=== PATIENT | female | born 1945 | race Two or more races ===

== ENCOUNTER → 2021-10-16 | Outpatient (CLI) | payer MEDICARE, OTHER | END | disposition home or self-care (01) | LOC: Rad HDHVI 15:56 | PROVIDERS: ATTEND Internal Medicine | DX: I51.7 Cardiomegaly (principal); I20.8 Other forms of angina pectoris; I10 Essential (primary) hypertension | CPT/HCPCS: 93306 ==

== ENCOUNTER → 2021-11-26 | Outpatient (CLI) | payer MEDICARE, OTHER ==
[~2021-11-26] VITALS: Ht 172.7 cm; Wt 80.7 kg
== END | disposition home or self-care (01) ==
LOC: Rad HDHVI 08:24
PROVIDERS: ATTEND Internal Medicine
DX: I10 Essential (primary) hypertension (principal); R94.31 Abnormal electrocardiogram [ECG] [EKG]; I20.8 Other forms of angina pectoris; E78.5 Hyperlipidemia, unspecified; I21.19 ST elevation (STEMI) myocardial infarction involving other coronary artery of inferior wall
CPT/HCPCS: 78452; 93017; 96374; A9500

== ENCOUNTER → 2024-02-27 | Outpatient (CLI) | payer MEDICARE, OTHER | END | disposition home or self-care (01) | LOC: Rad HDHVI 15:29 | PROVIDERS: ATTEND Internal Medicine Cardiovascular Disease | DX: I10 Essential (primary) hypertension (principal); R42 Dizziness and giddiness | CPT/HCPCS: 93880 ==

== ENCOUNTER → 2024-04-10 | Outpatient (CLI) | payer MEDICARE, OTHER ==
[~2024-04-10] VITALS: Ht 172.7 cm; Wt 83.9 kg
[~2024-04-10] MED LIST: cloNIDine HCL 0.1 MG TAB ONE
== END | disposition home or self-care (01) ==
LOC: Rad HDHVI 08:49
PROVIDERS: ATTEND Internal Medicine Cardiovascular Disease
DX: R00.2 Palpitations (principal); I10 Essential (primary) hypertension; E78.00 Pure hypercholesterolemia, unspecified; R06.01 Orthopnea; E11.21 Type 2 diabetes mellitus with diabetic nephropathy; R42 Dizziness and giddiness; Z82.49 Family history of ischemic heart disease and other diseases of the circulatory system; Z79.899 Other long term (current) drug therapy
CPT/HCPCS: 78452; 93017; 96374; A9500

== ENCOUNTER 2024-07-16 09:55 | Inpatient (IN) | payer MEDICARE, OTHER ==
[~2024-07-16] VITALS: Ht 172.7 cm; Wt 97.3 kg
[2024-07-16] MEDS: HYDROmorphone HCL 2 MG/ML VL/or syr IV ONE (11:14)
[2024-07-16] MEDS: ONDANSETRON HCL 4 MG/2 ML VIAL IV ONE (11:15)
--- NOTE | 2024-07-16 11:16 | ED.PDOC ---
History of Present Illness HPI Comments 78 y/o F, with a Hx of HTN, presents with spouse for c/o headache, today. Patient endorses on unprovoked onset of headaches, intermittently, since 07/11/24. Patient comments on being seen and evaluated at [facility] in [place], [place] for headaches on 07/13/24, with no relief or improvement, after her head CT was negative and prescribed pain medications. Patient also reports on vomiting 1x, yesterday, evening. She denies having any vision or speech changes, dizziness, nausea, vomiting, or other associated symptoms or modifiers at this time, currently. Upon arrival to ED triage, patient had a blood pressure of 185/66. Chief Complaint: Headache Time Seen by MD: 10:58 Primary Care Provider: SONIDO Reviewed Notes: Nurses Notes, Medications, Allergies Allergies: Coded Allergies: Levofloxacin (Verified Allergy, Unknown, 11/26/21) Quinolones (Verified Allergy, Unknown, 11/26/21) Information Source: Patient Mode of Arrival: Ambulatory Severity: Moderate Timing: Days Duration: Since onset Prehospital treatment: Other (see HPI) Past Medical History PAST MEDICAL HISTORY: HTN Surgical History: Denies all surgeries ASSISTANT GROCERY History: No Pertinent ASSISTANT GROCERY History Family History Family History: Unknown Social History Smoker: Non-Smoker Alcohol: Denies ETOH Use Drugs: Denies Drug Use Lives In: Home Neurological: reports: headache All Other Systems: Reviewed and Negative (negative unless otherwise stated above or in HPI) Physical Exam General Appearance: Moderate Distress HEENT: Normal ENT Inspection, Pharynx Normal, TMs Normal Neck: Full Range of Motion, Non-Tender, Normal, Normal Inspection Respiratory: Chest Non-Tender, Lungs Clear, No Accessory Muscle Use, No Respiratory Distress, Normal Breath Sounds Cardiovascular: No Edema, No JVD, No Murmur, No Gallop, Normal Peripheral Pulses, Regular Rate/Rhythm Breast Exam: Deferred Gastrointestinal: No Organomegaly, Non Tender, No Pulsatile Mass, Normal Bowel Sounds, Soft Genitalia: Deferred Pelvic: Deferred Rectal: Deferred Extremities: No calf tenderness, Normal capillary refill, Normal inspection, Normal range of motion, Non-tender, No pedal edema Musculoskeletal : Apperance: Normal Neurologic: Alert, head esthetician II-XII nml as Tested, No Motor Deficits, Normal Affect, Normal Mood, No Sensory Deficits Cerebellar Function: Normal Reflexes: Normal Skin: Dry, Normal Color, Warm Peripheral Pulses: 3+ Radial (R), 3+ Radial (L) Lymphatic: No Adenopathy Was a procedure done? Was a procedure done?: No Differential Dx Considerations may include: tension headache, migraine, HTN emergency, HTN in appropriate medication dosage X-Ray, Labs, Meds, VS Vital Signs Date Time Temp Pulse Resp B/P (MAP) Pulse Ox O2 Delivery O2 Flow Rate FiO2 07/16/24 11:44 74 15 125/72 07/16/24 11:17 Room Air* 0 21 07/16/24 11:16 98.1 65 17 152/89 (110) 97 98.1 07/16/24 11:14 65 17 152/89 07/16/24 10:02 98.3 60 16 185/66 (105) 96 Lab Test 07/16/24 11:17 Range/Units White Blood Count Pending Red Blood Count Pending Hemoglobin Pending Hematocrit Pending Mean Corpuscular Volume Pending Mean Corpuscular Hemoglobin Pending Mean Corpuscular Hemoglobin Concent Pending Red Cell Distribution Width Pending Platelet Count Pending Mean Platelet Volume Pending Neutrophils (%) (Auto) Pending Lymphocytes (%) (Auto) Pending Monocytes (%) (Auto) Pending Basophils (%) (Auto) Pending Neutrophils # (Auto) Pending Lymphocytes # (Auto) Pending Monocytes # (Auto) Pending Sodium Level Pending Potassium Level Pending Chloride Level Pending Carbon Dioxide Level Pending Anion Gap Pending Blood Urea Nitrogen Pending Creatinine Pending Glomerular Filtration Rate Calc Pending BUN/Creatinine Ratio Pending Serum Glucose Pending Calcium Level Pending Troponin I High Sensitivity Pending Current Medications Medications (Trade) Dose Ordered Sig/Carly Route Start Time Stop Time Status Last Admin Hydromorphone HCl (Dilaudid Injection) 1 mg ONCE ONCE IV 07/16/24 11:00 07/16/24 11:01 DC 07/16/24 11:14 Ondansetron HCl (Zofran) 4 mg ONCE ONCE IV 07/16/24 11:00 07/16/24 11:01 DC 07/16/24 11:15 Patient alert. Complaining of headache. Has been having these headaches for some time. Was seen at [facility]. CT scan of the head done last week did not show any acute process. She was given some pain medication without relief. She continues to have headache even after being seen at [facility]. CT of the head done here does not show any acute process. Was given pain medication. Possibly will need MRI. Explained to the patient. Time of 1ST Reevaluation: 11:28 Reevaluation 1ST: Unchanged Patient Education/Counseling: Diagnosis, Treatment Family Education/Counseling: Diagnosis, Treatment Departure 1 Departure Time of Disposition: 12:07 Impression: Primary Impression: Severe headache Additional Impression: Hypertensive urgency Disposition: ADMITTED INPATIENT Admit to: Med Surg Condition: Guarded Critical Care Note Critical Care Time?: No Stability Stability form required: No Heart Score Heart Score: Heart Score Response (Comments) Value History N/A 0 EKG N/A 0 Age N/A 0 Risk Factors N/A 0 Troponin N/A 0 Total 0 I personally scribed for CRESENCIO DUNCAN MD ([email or web address]) on 07/16/24 at 11:16. Electronically submitted by Amandeep Morton ([email or web address]). CRESENCIO DUNCAN MD Jul 16, 2024 11:16
--- NOTE | 2024-07-16 11:55 | DVH ---
EXAM: CT HEAD WITHOUT CONTRAST HISTORY: headache COMPARISON: None TECHNIQUE: Axial images were obtained and reformatted in coronal and sagittal planes. All CT scans at this medical facility are performed using dose modulation techniques as appropriate t o a performed exam including the following: Automated exposure control was utilized; adjustment of th e MA and/or KV according to patient size; and use of iterative reconstruction technique. CT Dose: CTDI volume is 62 mGy. Dose-length product is 1203 mGy*cm FINDINGS: Supratentorial Region: No evidence for large acute territorial ischemia. No intracranial hemorrhage is noted. Confluent white matter hypoattenuating foci are noted bilaterally, which typically reflect chronic microvascular ischemic changes. Posterior Fossa: No acute abnormality. Brainstem: Unremarkable. Sellar/Suprasellar Region: Unremarkable. Ventricles, Cisterns, Sulci: Age-appropriate. Orbits: Unremarkable. Paranasal Sinuses: Unremarkable. Mastoid Air Cells: Unremarkable. Vasculature: Intracranial arterial calcified plaque formation noted. Bones/Soft Tissues: No acute abnormality. Other: None. IMPRESSION: 1. No acute intracranial process. 2. Moderate chronic microvascular ischemic changes.
[2024-07-16 11:59] LABS: Basophils # (auto) 0 10 ^3/uL (0-0.2); Basophils % (auto) 0.2 % (0.0-2.0); Eosinophils # (auto) 0 10 ^3/uL (0-0.8); Hematocrit 43.5 % (36.0-46.0); Hemoglobin 14.5 g/dL (12.2-16.2); Lymphocytes # (auto) 1.2 10 ^3/uL (0.4-5.4); Lymphocytes % (auto) 9.2 % (10.0-50.0); Mean Corpuscular Hemoglobin 31.5 pg (28.0-32.0); Mean Corpuscular Hgb Conc. 33.3 g/dL (32.0-36.0); Mean Corpuscular Volume 94.7 fL (80.0-100.0); Monocytes # (auto) 0.7 10 ^3/uL (0-1.3); Monocytes % (auto) 5.6 % (0.0-12.0); Platelet Count (auto) 236 10^3/uL (140-450); Red Blood Cells 4.59 10^6/uL (4.0-5.20); Red Cell Distribution Width 13.7 % (11.8-14.3)
[2024-07-16 12:01] LABS: Potassium 3.8 mmol/L (3.5-5.1); Sodium 140 mmol/L (136-145)
[2024-07-16 12:02] LABS: Anion Gap 8 (5-15); Carbon Dioxide 25 mmol/L (20-31)
[2024-07-16 12:08] LABS: Blood Urea Nitrogen 17 mg/dL (9-23)
[2024-07-16 12:09] LABS: Chloride 107 mmol/L (98-107); Glucose 126 mg/dL (74-106)
[2024-07-16] MEDS ORDERED: ONDANSETRON HCL 4 MG/2 ML VIAL IV PRN (13:30)
[2024-07-16] MEDS ORDERED: DOCUSATE SOD 100 MG CAP PO PRN (13:30)
--- NOTE | 2024-07-16 13:41 | DVHHP2 ---
History of Present Illness Reason for Visit: Severe headache History of Present Illness The patient is a 78 years old female with past medical history of hypertension and hyperlipidemia presented to [facility] ED with complaint of headache. Patient reports symptoms progressively get worse with intermittent headache and associated vomiting. Patient reports she has been seen and evaluated at [facility] in [place], [place] for headaches on 07/13/24, with no relief or improvement, after her head CT was negative, she was discharged home with prescribed pain medications. Patient was seen and evaluated in the ED, laboratory data shows WBC 13.0, platelets 236, sodium 140, potassium 3.8, BUN 17, creatinine 1.06, glucose 126, troponin 3, blood pressure 185/66 trending down to 125/72, heart rate 74, temperature 98.1 F, O2 saturation 97% on on room air. Head CT showed no acute intracranial process. Please see medication orders section in the computer. On my assessment, at bedside, patient denied chest pain, no dizziness, no palpitation, no shortness of breath, no nausea, no vomiting, no fever, no chills. Patient was admitted for further evaluation and medical management. Past Medical History HTN, hyperlipidemia Past Surgical History Denies all surgeries Family History Reviewed, noncontributory to the management of this case. Past Social History The patient lives at home, denies smoking, alcohol or illicit drugs abuse. Review of Systems Constitutional: Yes: Weakness; No: Fever, Chills, Sweats, Malaise, Other Eyes: No: Pain, Vision change, Conjunctivae inflammation, Eyelid inflammation, Other, Redness ENT: No: Ear pain, Ear discharge, Nose pain, Nose discharge, Nose congestion, Mouth pain, Mouth swelling, Throat pain, Throat swelling, Other Respiratory: No: Cough, Dry, Shortness of breath, SOB with excertion, Wheezing, Hemoptysis, Pleuritic Pain, Sputum, Wheezing, Other Cardiovascular: No: Chest Pain, Palpitations, Orthopnea, Paroxysmal Noc. Dyspnea, Edema, Lt Headedness, Other Gastrointestinal: Vomiting; No: Nausea, Abdominal Pain, Diarrhea, Constipation, Melena, Hematochezia, Other Genitourinary: No Dysuria, No Frequency, No Incontinence, No Hematuria, No Rete ntion, No Other Musculoskeletal: No: other, neck pain, shoulder pain, arm pain, back pain, hand pain, leg pain, foot pain Skin: No: Rash, Lesions, Jaundice, Bruising, Other Neurological: Other (Headache); No: Weakness, Numbness, Incoordination, Change in speech, Confusion, Seizures Allergies: Coded Allergies: Levofloxacin (Verified Allergy, Unknown, 11/26/21) Quinolones (Verified Allergy, Unknown, 11/26/21) Medications Current Medications Medications Dose Ordered Sig/Carly Route Start Time Stop Time Status Last Admin Dose Admin Atorvastatin Calcium 20 mg HS PO 07/16/24 22:00 Metoprolol Tartrate 25 mg BID PO 07/16/24 22:00 Hydralazine HCl 10 mg Q6HP PRN IV 07/16/24 13:30 Ceftriaxone Sodium 50 ml @ 100 mls/hr DAILY@09 IV 07/17/24 09:00 Sodium Chloride 10 ml Q8HR IV 07/16/24 14:00 Acetaminophen/ Hydrocodone Bitart 1 tab Q4HP PRN PO 07/16/24 13:30 Ondansetron HCl 4 mg Q4HP PRN IV 07/16/24 13:30 Docusate Sodium 100 mg BIDPRN PRN PO 07/16/24 13:30 UNV Acetaminophen 650 mg Q6HP PRN PO 07/16/24 13:30 UNV Morphine Sulfate 2 mg Q4HPRN PRN IV 07/16/24 13:30 UNV Exam Vital Signs Vital Signs Date Time Temp Pulse Resp B/P (MAP) Pulse Ox O2 Delivery O2 Flow Rate FiO2 07/16/24 11:44 74 15 125/72 07/16/24 11:17 Room Air* 0 21 07/16/24 11:16 98.1 97 98.1 General Appearance: Alert, Oriented X3, Cooperative, No acute distress HEENT: Atraumatic, PERRLA, EOMI, Mucous membr. moist/pink Respiratory: Clear to auscultation, Normal air movement Cardiovascular: Regular rate, Normal S1, Normal S2, No murmurs Abdominal: Normal bowel sounds, Soft, No tenderness, No hepatospenomegaly, No masses Extremities: No clubbing, No cyanosis, No edema, Normal pulses, No tenderness/swelling Skin: No rashes, No breakdown, No significant lesion Neuro: Normal speech, Normal tone, Sensation intact, Cranial nerves 3-12 NL, Reflexes 2+, Other (Generalized weakness) Psych/Mental Status: Mental status NL, Mood NL Labs/Xrays Labs Test 07/16/24 11:17 Range/Units White Blood Count 13.0 H 4.4-10.8 10^3/uL Red Blood Count 4.59 4.0-5.20 10^6/uL Hemoglobin 14.5 12.2-16.2 g/dL Hematocrit 43.5 36.0-46.0 % Mean Corpuscular Volume 94.7 80.0-100.0 fL Mean Corpuscular Hemoglobin 31.5 28.0-32.0 pg Mean Corpuscular Hemoglobin Concent 33.3 32.0-36.0 g/dL Red Cell Distribution Width 13.7 11.8-14.3 % Platelet Count 236 140-450 10^3/uL Mean Platelet Volume 8.4 6.9-10.8 fL Neutrophils (%) (Auto) 85.0 H 37.0-80.0 % Lymphocytes (%) (Auto) 9.2 L 10.0-50.0 % Monocytes (%) (Auto) 5.6 0.0-12.0 % Eosinophils (%) (Auto) 0.0 0.0-7.0 % Basophils (%) (Auto) 0.2 0.0-2.0 % Neutrophils # (Auto) 11.0 H 1.6-8.6 10 ^3/uL Lymphocytes # (Auto) 1.2 0.4-5.4 10 ^3/uL Monocytes # (Auto) 0.7 0-1.3 10 ^3/uL Eosinophils # (Auto) 0 0-0.8 10 ^3/uL Basophils # (Auto) 0 0-0.2 10 ^3/uL Nucleated Red Blood Cells 0.0 % Sodium Level 140 136-145 mmol/L Potassium Level 3.8 3.5-5.1 mmol/L Chloride Level 107 98-107 mmol/L Carbon Dioxide Level 25 20-31 mmol/L Anion Gap 8 5-15 Blood Urea Nitrogen 17 9-23 mg/dL Creatinine 1.06 H 0.550-1.02 mg/dL Glomerular Filtration Rate Calc 53 >90 mL/min BUN/Creatinine Ratio 16.0 10.0-20.0 Serum Glucose 126 H 74-106 mg/dL Calcium Level 10.0 8.7-10.4 mg/dL Troponin I High Sensitivity 3 L </=34 ng/L PATIENT: NEIL JULES ACCT: [id number] UNIT: [id number] : 1945 LOC: ER ROOM / BED: / AGE / SEX: 78 / F ADM STATUS: REG ER SERVICE 1057 ORDERING PHYSICIAN: CRESENCIO DUNCAN MD PROCEDURE(s): HWOCT - HEAD WITHOUT CONTRAST REASON: headache ORDER NUMBER(s): [id number], ACCESSION NUMBER(s): [id number] EXAM: CT HEAD WITHOUT CONTRAST HISTORY: headache COMPARISON: None TECHNIQUE: Axial images were obtained and reformatted in coronal and sagittal planes. All CT scans at this medical facility are performed using dose modulation techniques as appropriate to a performed exam including the following: Automated exposure control was utilized; adjustment of the MA and/or KV according to patient size; and use of iterative reconstruction technique. CT Dose: CTDI volume is 62 mGy. Dose-length product is 1203 mGy*cm FINDINGS: Supratentorial Region: No evidence for large acute territorial ischemia. No intracranial hemorrhage is noted. Confluent white matter hypoattenuating foci are noted bilaterally, which typically reflect chronic microvascular ischemic changes. Posterior Fossa: No acute abnormality. Brainstem: Unremarkable. Sellar/Suprasellar Region: Unremarkable. Ventricles, Cisterns, Sulci: Age-appropriate. Orbits: Unremarkable. Paranasal Sinuses: Unremarkable. Mastoid Air Cells: Unremarkable. Vasculature: Intracranial arterial calcified plaque formation noted. Bones/Soft Tissues: No acute abnormality. Other: None. IMPRESSION: 1. No acute intracranial process. 2. Moderate chronic microvascular ischemic changes. Assessment/Plan Assessment/Plan Severe headache Hypertensive urgency Generalized weakness Leukocytosis, unspecified Plan 1. Admit to telemetry unit 2. Breathing treatment 3. Pain control management 4. IV antibiotic management 5. Management of fluids and electrolytes 6. Consultation for Neurology 7. Diagnostic test head CT 8. DVT prophylaxis-on SCDs 9. Repeat labs CBC, CMP in a.m. 10. Home medication reviewed and reconciled 11. Continue with current medical management 12. Treatment plan discussed with patient/ and RN. Patient/ verbalized understanding. Plan discussed with: Patient, Spouse ( at bedside), Other (RN) My Orders Orders - DARIO HOLBROOK DNP Procedure Category Date Status Time Atorvastatin (Lipitor) PHA 07/16/24 In Process 22:00 Metoprolol Tartrate PHA 07/16/24 In Process Tablet (Lopressor Ta 22:00 Hydralazine Injection PHA 07/16/24 In Process (Apresoline Inject 13:30 Ceftriaxone 1gm/50ml PHA 07/17/24 In Process D5w (Rocephin) 09:00 Ceftriaxone 1gm/50ml PHA 07/16/24 In Process D5w (Rocephin) 13:30 Blood Culture PAULINE 07/16/24 Logged 13:17 Allergies MICA 07/16/24 In Process 13:17 Code Status CODE 07/16/24 Transmitted 13:17 Sodium Chloride Lock PHA 07/16/24 In Process (Saline Lock Ns) 14:00 Oxygen Per Hour RT 07/16/24 Transmitted 13:17 Hydrocodone-Acet PHA 07/16/24 In Process 5/325mg Tab ([place] 13:30 Ondansetron Hcl PHA 07/16/24 In Process (Zofran) 13:30 Docusate Sodium PHA 07/16/24 In Process Capsule (Colace 13:30 Fall Risk Precautions MICA 07/16/[address] 13:17 Complete Blood Count LAB 07/17/24 Verified 04:00 Comprehensive LAB 07/17/24 Verified Metabolic Panel 04:00 Cardiac DIET 07/16/24 Transmitted Diet-2gna,Lofat,Lochol Lunch Condition: Serious MICA 07/16/24 In Process 13:17 Acetaminophen Tablet PHA 07/16/24 In Process (Tylenol Tablet) 13:30 Morphine Sulfate PHA 07/16/24 In Process Injection 13:30 Sequential MICA 07/16/24 In Process Compression Device Problem List: (1) Severe headache (2) Hypertensive urgency (3) Generalized weakness (4) Leukocytosis, unspecified Date of Service: Jul 16, 2024 Billing Provider: DARIO HOLBROOK DNP Common Visit Codes: 38138-[id number] INP/OBS CARE (HIGH) DARIO HOLBROOK DNP Jul 16, 2024 13:41
[2024-07-16] MEDS ORDERED: MORPHINE SULFATE INJ 2 MG/ml SYRG IV PRN (13:45)
[2024-07-16] MEDS ORDERED: NITROGLYCERIN 0.4 MG SL TAB SL PRN (13:45)
[2024-07-16] MEDS: cefTRIAXone 1GM/50ML D5W 50 ML IV ONE (13:46)
[2024-07-16] MEDS: SODIUM CHLOR 0.9% PF (SALINE LOCK) 10ML VIAL/SYR IV SCH (16:14)
[2024-07-16 17:17] VITALS: BP 137/65; PULSE 63; RESP 20; TEMP 98.2; O2SAT 92
[2024-07-16] MEDS: HYDROcodone-ACET 5/325MG TAB PO PRN (19:47)
[2024-07-16] MEDS: MORPHINE SULFATE INJ 2 MG/ml SYRG IV PRN (20:51)
[2024-07-16] MEDS: ATORVASTATIN 20 MG TAB PO SCH (21:11)
[2024-07-16] MEDS: METOPROLOL TARTRATE 25 MG TAB PO SCH (21:16)
[2024-07-16] MEDS ORDERED: ATOR20TA PO (21:25)
[2024-07-16] MEDS ORDERED: LOSA-535 PO (21:25)
[2024-07-16] MEDS ORDERED: METO25TA93 PO (21:25)
[2024-07-16 21:26] VITALS: PULSE 74
[2024-07-16 22:15] VITALS: PULSE 64; RESP 18; TEMP 98.3; O2SAT 91
[2024-07-16 22:35] VITALS: BP 135/60; PULSE 64; RESP 20; TEMP 98.6; O2SAT 91
[2024-07-16] MEDS: ACETAMINOPHEN 325 MG TAB PO PRN (23:56)
[2024-07-17] VITALS (7 sets, daily range): BP systolic 108–176; BP diastolic 37–91; PULSE 55–73; RESP 16–19; TEMP 97.8–98.8; O2SAT 94–97
[2024-07-17] MEDS ORDERED: BACL10TA PO (01:31)
[2024-07-17] MEDS ORDERED: BUPR200T2 PO (01:31)
[2024-07-17] MEDS ORDERED: HYDR-4798 PO (01:31)
[2024-07-17] MEDS ORDERED: ATOR20TA50 PO (01:31)
[2024-07-17 06:57] LABS: Basophils # (auto) 0 10 ^3/uL (0-0.2); Basophils % (auto) 0.3 % (0.0-2.0); Eosinophils # (auto) 0.1 10 ^3/uL (0-0.8); Hematocrit 37.3 % (36.0-46.0); Hemoglobin 12.5 g/dL (12.2-16.2); Lymphocytes % (auto) 21.2 % (10.0-50.0); Mean Corpuscular Hemoglobin 31.6 pg (28.0-32.0); Mean Corpuscular Hgb Conc. 33.4 g/dL (32.0-36.0); Mean Corpuscular Volume 94.6 fL (80.0-100.0); Monocytes # (auto) 1.1 10 ^3/uL (0-1.3); Monocytes % (auto) 11.3 % (0.0-12.0); Neutrophils # (auto) 6.3 10 ^3/uL (1.6-8.6); Neutrophils % (auto) 66.2 % (37.0-80.0); Platelet Count (auto) 206 10^3/uL (140-450); Red Blood Cells 3.94 10^6/uL (4.0-5.20); Red Cell Distribution Width 13.9 % (11.8-14.3); White Blood Cell 9.5 10^3/uL (4.4-10.8)
[2024-07-17 07:12] LABS: Alanine Aminotransferase 15 U/L (7-40); Albumin 3.6 g/dL (3.2-4.8); Alkaline Phosphatase 110 U/L (46-116); Anion Gap 7 (5-15); Aspartate Aminotransferase 14 U/L (13-40); BUN/Creatinine Ratio 17.7 (10.0-20.0); Blood Urea Nitrogen 20 mg/dL (9-23); Calcium 9.2 mg/dL (8.7-10.4); Carbon Dioxide 27 mmol/L (20-31); Chloride 106 mmol/L (98-107); Potassium 3.7 mmol/L (3.5-5.1); Sodium 140 mmol/L (136-145)
[2024-07-17 07:13] LABS: Bilirubin, Total 0.4 mg/dL (0.2-1.0)
[2024-07-17 07:15] LABS: Glucose 125 mg/dL (74-106); Total Protein 5.1 g/dL (5.7-8.2)
[2024-07-17] MEDS: cefTRIAXone 1GM/50ML D5W 50 ML IV SCH (09:26)
--- NOTE | 2024-07-17 14:38 | DVHPN2 ---
Progress Note Date Seen: Jul 17, 2024 Medical Necessity Reason Pt with a Central, PICC or Fol: No Subjective Patient reports: No new complaints Review of Systems: HEENT:Normal, CVS:Normal, RESPIRATORY:Normal, GI:Normal, :Normal, MSK:Normal, NEURO:Normal Objective vital signs Vital Sign Date Time Temp Pulse Resp B/P (MAP) Pulse Ox O2 Delivery O2 Flow Rate FiO2 07/17/24 13:00 98.1 60 18 142/68 (92) 95 98.1 07/17/24 08:00 Room Air* 0 21 Total Intake and Output 07/16/24 07/16/24 07/17/24 15:00 23:00 07:00 Intake Total 50 ml 520 ml Output Total 600 ml Balance 50 ml -80 ml medications Current Medications Medications Dose Ordered Sig/Carly Route Start Time Stop Time Status Last Admin Dose Admin Atorvastatin Calcium 20 mg HS PO 07/16/24 22:00 07/16/24 21:11 20 MG Metoprolol Tartrate 25 mg BID PO 07/16/24 22:00 07/17/24 09:05 25 MG Hydralazine HCl 10 mg Q6HP PRN IV 07/16/24 13:30 Ceftriaxone Sodium 50 ml @ 100 mls/hr DAILY@09 IV 07/17/24 09:00 07/17/24 09:26 100 MLS/HR Sodium Chloride 10 ml Q8HR IV 07/16/24 14:00 07/17/24 06:09 10 ML Acetaminophen/ Hydrocodone Bitart 1 tab Q4HP PRN PO 07/16/24 13:30 07/16/24 19:47 1 TAB Ondansetron HCl 4 mg Q4HP PRN IV 07/16/24 13:30 Docusate Sodium 100 mg BIDPRN PRN PO 07/16/24 13:30 Acetaminophen 650 mg Q6HP PRN PO 07/16/24 13:30 07/16/24 23:56 650 MG Morphine Sulfate 2 mg Q4HPRN PRN IV 07/16/24 13:30 07/17/24 08:43 2 MG Nitroglycerin 0.4 mg Q5MINP PRN SL 07/16/24 13:45 Morphine Sulfate 2 mg Q30M PRN IV 07/16/24 13:45 Examination: GENERAL:Normal, HEENT:Normal, NECK:Normal, LUNGS:Normal, CVS:Normal, ABDOMEN:Normal, MSK:Normal, SKIN:Normal, NEURO:Normal, :Normal laboratory and microbiology Laboratory Tests 07/17/24 05:08 Test 07/17/24 05:08 Range/Units Serum Glucose 125 H 74-106 mg/dL Problem List/Assessment/Plan Problem List/Assessment/Plan #1 severe right headache: mri brain, esr, crp #2 htn #3 obesity #4 hyperlipidemia advance care planning- full code- time spent 19min Plan discussed with: Patient Date of Service: Jul 17, 2024 Billing Provider: GEORGI FIELDS MD Common Visit Codes: [id number] INP/OBS CARE(HIGH) Secondary Visit Codes: [id number] CARE PLAN 30 MINUTES GEORGI FIELDS MD Jul 17, 2024 14:38
[2024-07-17] MEDS: ACETAMINOPHEN/CODEINE#3 (300/30mg) TAB PO PRN (15:06)
--- NOTE | 2024-07-17 15:26 | DVH ---
Carotid Duplex Clinical History: headaches Comparison: None Technique: Duplex doppler evaluation of the extracranial carotid and vertebral arteries including color doppler and spectral/pulsed waveform analysis was performed. Findings: No elevated peak flow velocities. Antegrade flow in both vertebral arteries. No abnormal narrowing scene of the vessels on real time ultrasound Impression: 1. No hemodynamically significant stenosis noted in the right carotid system. 2. No hemodynamically significant stenosis noted in the left carotid system. Reference: Radiology 2003; 229:340-346 Normal ICA PSV is <125 cm/sec and no plaque or intimal thickening is visible sonographically Additional criteria include ICA/CCA PSV ratio <2.0 and ICA EDV <40 cm/sec <50% ICA stenosis ICA PSV is <125 cm/sec and plaque or intimal thickening is visible sonographically Additional criteria include ICA/CCA PSV ratio <2.0 and ICA EDV <40 cm/sec 50-69% ICA stenosis ICA PSV is 125-230 cm/sec and plaque is visible sonographically Additional criteria include ICA/CCA PSV ratio of 2.0-4.0 and ICA EDV of 40-100 cm/sec 70% ICA stenosis but less than near occlusion ICA PSV is >230 cm/sec and visible plaque and luminal narrowing are seen at erazo-scale and color dopp ler ultrasound (the higher the doppler parameters lie above the threshold of 230 cm/sec, the greater the likelihood of severe disease) Additional criteria include ICA/CCA PSV ratio >4 and ICA EDV >100 cm/sec
[2024-07-17 15:46] LABS: Erythrocyte Sedimentation Rate 2 mm/hr (0-20)
[2024-07-17 16:57] LABS: Urine Bacteria FEW /hpf (None Seen); Urine Blood Negative /uL (Negative); Urine Clarity Clear (Clear); Urine Color Light-Yellow (Yellow); Urine Protein, UAD Negative (Negative); Urine Specific Gravity 1.009 (1.001-1.035); Urine Squamous Epithelial Cell FEW /hpf (<5); Urine Urobilinogen Normal (Negative); Urine WBC 1 /hpf (0 - 5)
[2024-07-17] MEDS: hydrALAZINE HCL 20 MG/ML VL IV PRN (17:43)
[2024-07-17] MEDS: buPROPion HCL 100 MG TAB PO SCH (19:25)
[2024-07-18] VITALS (7 sets, daily range): BP systolic 142–169; BP diastolic 50–82; PULSE 55–58; RESP 17–18; TEMP 97.7–98.6; O2SAT 94–96
[2024-07-18] MEDS: LOSARTAN POTASSIUM 50 MG TAB PO SCH (09:35)
[2024-07-18] MEDS: LORazepam 2MG/ML-1ML VIAL IV ONE (10:37)
--- NOTE | 2024-07-18 11:38 | DVH ---
EXAMINATION: MRI BRAIN HEAD WO CONTRAST INDICATION: SEVERE HEADACHES COMPARISON: None TECHNIQUE: Multiplanar, multisequence magnetic resonance imaging of the brain was performed without the use of i ntravenous contrast. FINDINGS: No evidence of acute or remote infarct. No intracranial hemorrhage. No mass effect. There is periventricular/deep white matter T2/FLAIR hyperintensity is nonspecific, but most commonly associated with chronic microvascular disease. The ventricles and sulci are normal in size for age. Clear basal cisterns. Flow voids in the major intracranial vessels are maintained. No abnormality of the orbits. Paranasal sinuses and mastoid air cells are clear. No abnormality of the visualized osseous structures and extracranial soft tissues. IMPRESSION: No acute infarct, intracranial hemorrhage, mass effect, or hydrocephalus.
--- NOTE | 2024-07-18 12:34 | DVHDS2 ---
Discharge Summary Date of Admission Jul 16, 2024 at 13:37 Date of Discharge: Jul 18, 2024 Labs/Diagnostic Data: Laboratory Results Test 07/17/24 16:44 07/17/24 05:08 07/16/24 11:17 Urine Color Light-yellow (Yellow) Urine Clarity Clear (Clear) Urine pH 6.0 (5.0-9.0) Urine Specific [place] 1.009 (1.001-1.035) Urine Protein Negative (Negative) Urine Ketones Negative (Negative) Urine Blood Negative /uL (Negative) Urine Nitrite Negative (Negative) Urine Bilirubin Negative (Negative) Urine Urobilinogen Normal mg/dL (Negative) Urine Leukocyte Esterase Negative /uL (Negative) Urine RBC 1 /hpf (0 - 4) Urine WBC 1 /hpf (0 - 5) Urine Squamous Epithelial Cells Few /hpf (<5) Urine Bacteria Few /hpf (None Seen) Urine Glucose Normal mg/dL (Normal) White Blood Count 9.5 10^3/uL (4.4-10.8) Red Blood Count 3.94 10^6/uL (4.0-5.20) Hemoglobin 12.5 g/dL (12.2-16.2) Hematocrit 37.3 % (36.0-46.0) Mean Corpuscular Volume 94.6 fL (80.0-100.0) Mean Corpuscular Hemoglobin 31.6 pg (28.0-32.0) Mean Corpuscular Hemoglobin Concent 33.4 g/dL (32.0-36.0) Red Cell Distribution Width 13.9 % (11.8-14.3) Platelet Count 206 10^3/uL (140-450) Mean Platelet Volume 8.3 fL (6.9-10.8) Neutrophils (%) (Auto) 66.2 % (37.0-80.0) Lymphocytes (%) (Auto) 21.2 % (10.0-50.0) Monocytes (%) (Auto) 11.3 % (0.0-12.0) Eosinophils (%) (Auto) 1.0 % (0.0-7.0) Basophils (%) (Auto) 0.3 % (0.0-2.0) Neutrophils # (Auto) 6.3 10 ^3/uL (1.6-8.6) Lymphocytes # (Auto) 2.0 10 ^3/uL (0.4-5.4) Monocytes # (Auto) 1.1 10 ^3/uL (0-1.3) Eosinophils # (Auto) 0.1 10 ^3/uL (0-0.8) Basophils # (Auto) 0 10 ^3/uL (0-0.2) Nucleated Red Blood Cells 0.0 % Erythrocyte Sedimentation Rate 2 mm/hr (0-20) Sodium Level 140 mmol/L (136-145) Potassium Level 3.7 mmol/L (3.5-5.1) Chloride Level 106 mmol/L (98-107) Carbon Dioxide Level 27 mmol/L (20-31) Anion Gap 7 (5-15) Blood Urea Nitrogen 20 mg/dL (9-23) Creatinine 1.13 mg/dL (0.550-1.02) Glomerular Filtration Rate Calc 49 mL/min (>90) BUN/Creatinine Ratio 17.7 (10.0-20.0) Serum Glucose 125 mg/dL (74-106) Calcium Level 9.2 mg/dL (8.7-10.4) Total Bilirubin 0.4 mg/dL (0.2-1.0) Aspartate Amino Transferase (AST) 14 U/L (13-40) Alanine Aminotransferase (ALT) 15 U/L (7-40) Alkaline Phosphatase 110 U/L (46-116) C-Reactive Protein High Sensitivity 0.04 mg/dL (<1.0) Total Protein 5.1 g/dL (5.7-8.2) Albumin 3.6 g/dL (3.2-4.8) Troponin I High Sensitivity 3 ng/L (</=34) Other Laboratory Tests 07/17/24 05:08 Brief Hx & Hospital Course: SEE DICTATED NOTE Condition at Discharge: Good Final Diagnosis/Problems List HEADACHE Discharge Disposition: Home Discharge Instruct/Medications Diet: Cardiac 2g Na,low cholest Activity: No Restrictions, As Tolerated Follow Up/Referral: FU WITH NEUROLOGY IN 1 WK Medications: RESUME HOME MEDS TRIAL OF EXCEDRINE MIGRAINE - OTC Discharge Statement: "Patient was advised to return to the ER or call 911 if any headaches, dizziness, shortness of breath, chest pain, abdominal pain, bleeding, fevers, or worsening of medical condition. Patient was counseled about treatment plan, medications, possible side effects, patientverbalized understanding. All questions were answered to the best of my ability. This discharge took greater then 30 minutes in planning, reviewing documentation, counseling the patient, and discussing with other team members." ASSESSMENT ASSESSMENT Assessment HEADACHE Date of Service: Jul 18, 2024 Billing Provider: GEORGI FIELDS MD Common Visit Codes: 74800-FAO/OBS DISCH DAY >30min GEORGI FIELDS MD Jul 18, 2024 12:34
--- NOTE | 2024-07-18 12:52 | DVHDS ---
DATE OF DISCHARGE: 07/18/2024 HISTORY OF PRESENT ILLNESS: The patient is a 78-year-old lady who came with complaints of severe headache on the right side of the head. The patient has previous history of hypertension and hyperlipidemia. HOSPITAL COURSE: The patient had an MRI of the brain that was unremarkable and carotid Dopplers that showed no significant stenosis. Her ESR was at 2 and CRP was 0.04. The patient had blood cultures that were negative. The patient will now be discharged home to resume her home medications as well as to have a trial of Excedrin Migraine, which is [id number]. She will follow up with Neurology in 1 week. FINAL DIAGNOSES: Therefore, * Severe headaches, questionably avascular, questionably migraine. * Hypertension. * Chronic kidney disease, stage 3A. * Hyperlipidemia. * Obesity. The patient will also be given a copy of the MRI and the carotid Doppler reports. Time spent in discharge planning and review of plan with the patient and nursing was 36 minutes. MD DEEPIKA Ellington/DORA TID: [id number] RECEIPT: [id number]
== END 2024-07-18 13:30 | disposition home or self-care (01) | DRG 103 ==
LOC: ER 09:55 → TELE 13:37 → TELE-WESTW 22:15
PROVIDERS: ADMIT Nurse Practitioner Family; ATTEND Internal Medicine
DX: G43.909 Migraine, unspecified, not intractable, without status migrainosus (principal); I16.0 Hypertensive urgency; D72.829 Elevated white blood cell count, unspecified; E66.9 Obesity, unspecified; E78.5 Hyperlipidemia, unspecified; N18.31 Chronic kidney disease, stage 3a; I12.9 Hypertensive chronic kidney disease with stage 1 through stage 4 chronic kidney disease, or unspecified chronic kidney disease; Z88.1 Allergy status to other antibiotic agents; Z68.29 Body mass index [BMI] 29.0-29.9, adult
CPT/HCPCS: 36415; 70450; 70551; 80048; 80053; 81001; 84484; 85025; 85652; 86141; 87040; 93886; G0378; J2405